=== PATIENT | female | born 1950 | race Caucasian/White ===

== ENCOUNTER 2016-10-26 00:28 | Emergency (ER) | payer SELFPAY ==
[~2016-10-26] VITALS: Ht 170.2 cm; Wt 106.8 kg
[~2016-10-26 00:28] MED LIST: ALBU8I INH; CIPR500T4 PO; HYDR12.56 PO; LISI-587 PO; LORTA5 PO; METR-1 PO; PRIN20TA2 PO; ZOLO50TA PO
[2016-10-26 00:39] VITALS: BP 125/58; PULSE 88; RESP 12; TEMP 98; O2SAT 97
[2016-10-26] MEDS ORDERED: HYDR12.57 PO (00:57)
[2016-10-26] MEDS ORDERED: ZOLO100T PO (00:58)
[2016-10-26] MEDS ORDERED: LISI-515 PO (00:59)
[2016-10-26] MEDS ORDERED: KETOROLAC TROMETHAMINE 60 MG/2 ML (IM) VIAL IM ONE (01:15)
[2016-10-26] MEDS ORDERED: predniSONE 20 MG TAB PO ONE (01:15)
--- NOTE | 2016-10-26 01:56 | RADRPT ---
EXAM DATE/TIME: 10/26/2016 01:29 [place] COMPARISON: No previous studies available for comparison. INDICATIONS : Right hip pain down leg. MEDICAL HISTORY : None. SURGICAL HISTORY : None. ENCOUNTER: Initial ACUITY: 2 days PAIN SCORE: 7/10 LOCATION: Right lateral FINDINGS: Two views of the right hip demonstrate no fracture or dislocation. Mineralization is within normal li mits. There is no significant arthropathy. No soft tissue abnormality is identified. CONCLUSION: No acute right hip abnormality is identified. Erwin Palomino MD on October 26, 2016 at 1:54 Board Certified Radiologist. This report was verified electronically.
[2016-10-26 02:35] VITALS: BP 147/63; PULSE 65; RESP 14; O2SAT 98
[2016-10-26] MEDS ORDERED: MOBI15TA PO (02:38)
[2016-10-26] MEDS ORDERED: NORC5TAB PO (02:38)
--- NOTE | 2016-10-26 02:38 | PD ---
HPI Chief Complaint: Pain: Acute or Chronic Time Seen by Provider: 00:47 Travel History International Travel<30 days: No Contact w/Intl Traveler<30days: No Traveled to known affect area: No History of Present Illness HPI 66-year-old female complains of buttock pain with pain radiation to the right leg. Patient states that the symptoms started 3 days ago and get worse this evening. Patient states that the pain is burning pain sharp pain. Patient complained of occasional numbness sensation in the right groin also since yesterday. Patient denies any headache. Patient denies any neck pain. Patient denies any chest pain or shortness of breath. Patient denies abdominal pain. Patient denies any history of back pain problem. Patient denies any focal weakness or numbness of extremity except occasional numbness on the right groin area. Patient denies any recent injury. Patient denies any fever chills. PFSH Past Medical History Asthma: Yes Hypertension: Yes Tetanus Vaccination: > 5 Years Influenza Vaccination: No Menopausal: Yes Past Surgical History Cholecystectomy: Yes Hysterectomy: Yes Other Surgery: Yes (Right carpal tunnel, sebaceous cyst removal ) Social History Alcohol Use: No Tobacco Use: No Substance Use: No Allergies-Medications (Allergen,Severity, Reaction): Coded Allergies: cortisone (Verified Allergy, Intermediate, Burning, 10/26/16) Reported Meds & Prescriptions Reported Meds & Active Scripts Active Reported Lisinopril 20 Mg Tab 20 Mg PO BID Zoloft (Sertraline HCl) 100 Mg Tab 100 Mg PO DAILY Hydrochlorothiazide 12.5 Mg Cap 12.5 Mg PO DAILY Review of Systems General / Constitutional: No: Fever Eyes: No: Visual changes HENT: No: Headaches Cardiovascular: No: Chest Pain or Discomfort Respiratory: No: Shortness of Breath Gastrointestinal: No: Abdominal Pain Genitourinary: No: Dysuria Musculoskeletal: No: Pain Skin: No Rash Neurologic: No: Weakness Psychiatric: No: Depression Endocrine: No: Polydipsia Hematologic/Lymphatic: No: Easy Bruising Physical Exam Narrative GENERAL: Well-nourished, well-developed patient. SKIN: Focused skin assessment warm/dry. HEAD: Normocephalic. EYES: No scleral icterus. No injection or drainage. NECK: Supple, trachea midline. No JVD or lymphadenopathy. CARDIOVASCULAR: Regular rate and rhythm without murmurs, gallops, or rubs. RESPIRATORY: Breath sounds equal bilaterally. No accessory muscle use. GASTROINTESTINAL: Abdomen soft, non-tender, nondistended. MUSCULOSKELETAL: No cyanosis, or edema. BACK: Patient has moderate tenderness on palpation posterior aspect the right hip joint. Positive straight leg raising right leg. Neurologic exam normal. Data Data Last Documented VS Vital Signs Date Time Temp Pulse Resp B/P (MAP) Pulse Ox O2 Delivery O2 Flow Rate FiO2 10/26/16 00:39 98.0 88 12 125/58 (80) 97 Orders Orders Ketorolac Inj (Toradol Inj) (10/26/16 01:15) Prednisone (Deltasone) (10/26/16 01:15) Hip, Uni(Ap&Lat) Wo Ap Pelvis (10/26/16 01:06) MDM Medical Decision Making Medical Screen Exam Complete: Yes Emergency Medical Condition: Yes Interpretation(s) Last Impressions Hip X-Ray 10/26/16 0106 Signed Impressions: Service Date/Time: Wednesday, October 26, 2016 01:29 - CONCLUSION: No acute right hip abnormality is identified. Erwin Palomino MD Differential Diagnosis Differential diagnosis including sciatica, bursitis, tendinitis, arthritis. Narrative Course 66-year-old female with a right hip pain with pain radiation to right leg. Patient allergic to cortisone injection. Patient states that she has no problem taking prednisone by mouth in the past. Toradol 60 mg IM. Prednisone 20 g by mouth. Diagnosis Primary Impression: Sciatica Qualified Codes: M54.31 - Sciatica, right side Patient Instructions: General Instructions Additional Instructions: Medication as directed for pain. Follow-up with an orthopedist and personal physician. Return if worse. Med/Other Pt SpecificInfo: Prescription(s) given Scripts Hydrocodone-Acetaminophen ([place]) 5-325 mg Tab 1 TAB PO Q6H Y for PAIN, #20 TAB 0 Refills Prov: Johnny Heath MD 10/26/16 Meloxicam (Mobic) 15 Mg Tab 15 MG PO DAILY for Pain, #20 TAB 0 Refills Prov: Johnny Heath MD 10/26/16 Disposition: 01 DISCHARGE HOME Condition: Stable Johnny Heath MD Oct 26, 2016 02:38
== END 2016-10-26 02:50 | disposition home or self-care (01) ==
LOC: PHED 00:28
DX: M54.31 Sciatica, right side (principal)
CPT/HCPCS: 73502; 96372; 99284; J1885; J7512